=== PATIENT | female | born 1960 | race Hispanic/Latino ===

== ENCOUNTER 2018-08-02 10:41 | Emergency (ER) | payer MEDICAID ==
[2018-08-02 10:58] VITALS: RESP 18; O2SAT 99
--- NOTE | 2018-08-02 11:03 | C.PDOC ---
History Of Present Illness 58 yr old female w/ hx of HTN, HLD, DM2 p/w back pain. Pt notes back pain and abdominal pain x5d, started upon awakening. 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 No trauma or falls. No headache, chest pain or shortness of breath. No constipation or diarrhea but pt notes lightly loose stools over the past 2 days. No recent abx. Last BM was earlier today, normal. No dark or bloody stool. No dysuria, urgency or frequency. No nausea or vomiting. No CP or SOB. No fever, chills or night sweats. No other complaints. Time Seen by Provider: 08/02/18 10:57 Chief Complaint (Nursing): Back Pain History Per: Patient Past Medical History Family History: States: Unknown Family Hx Review Of Systems Constitutional: Negative for: Fever Eyes: Negative for: Pain ENT: Negative for: Ear Pain Cardiovascular: Negative for: Chest Pain Respiratory: Negative for: Cough Gastrointestinal: Positive for: Abdominal Pain. Negative for: Nausea, Vomiting, Constipation Genitourinary: Negative for: Dysuria Musculoskeletal: Positive for: Back Pain. Negative for: Neck Pain Skin: Negative for: Rash Neurological: Negative for: Weakness, Numbness Physical Exam - Physical Exam Appears: Well, Non-toxic, No Acute Distress Skin: Normal Color, Warm, Dry Head: Atraumatic, Normacephalic Eye(s): bilateral: Normal Inspection, PERRL, EOMI Nose: Normal Tongue: Normal Appearing Lips: Normal Appearing Throat: Normal Neck: Normal Cardiovascular: Rhythm Regular Respiratory: Normal Breath Sounds Gastrointestinal/Abdominal: Normal Exam Back: Normal Inspection, CVA Tenderness (L sided), No Vertebral Tenderness, No Decreased ROM, No Muscle Spasm, Paraspinal Tenderness, No Straight Leg Raising Extremity: Normal ROM Neurological/Psych: Oriented x3, Normal Speech, Normal Cognition, Cerebellar Signs Gait: Steady Extremity: Right: No Drift, Left: No Drift, Upper: No Drift, Lower: No Drift ED Course And Treatment - Laboratory Results Result Diagrams: 08/02/18 12:22 08/02/18 12:22 - CT Scan/US CT ABD/PELVIS Other Rad Studies (CT/US): Read By Radiologist CT/US Interpretation: FINDINGS: LOWER THORAX: No visible consolidation, pleural effusion, or pneumothorax. LIVER: Hepatomegaly. GALLBLADDER AND BILE DUCTS: Unremarkable. PANCREAS: Unremarkable. SPLEEN: Unremarkable. ADRENALS: Indeterminate bilateral adrenal gland nodules measure approximately 11 x 9 mm on the right and 15 x 16 mm on the left. KIDNEYS AND URETERS: The kidneys enhance symmetrically. No hydronephrosis or obstructing calculus identified. VASCULATURE: Atherosclerotic calcifications. No aortic aneurysm. BOWEL: Stomach is nondistended. Lack of oral contrast limits evaluation for bowel pathology. Bowel loops appear within normal limits of caliber without evidence of obstruction. APPENDIX: The appendix appears within normal limits of caliber. No secondary signs of acute appendicitis. PERITONEUM: No significant free fluid. No definite free air. LYMPH NODES: No bulky adenopathy identified. BLADDER: Unremarkable. REPRODUCTIVE: Unremarkable. BONES: Degenerative changes. OTHER FINDINGS: Small fat containing umbilical hernia. IMPRESSION: Indeterminate bilateral adrenal gland nodules measure approximately 11 x 9 mm on the right and 15 x 16 mm on the left. Dedicated outpatient cross-sectional imaging may be considered for further characterization. Hepatomegaly. Medical Decision Making Medical Decision Makin yr old female p/w L sided flank pain and abdominal pain LUQ, worse with movement. likely MSK but Given hx of HTN, DM will seek imaging. No recent abx. No cauda equina. Pending imaging and labs. 1412 pain improved Labs unremarkable. No uti Negative CT for AAA or kidney stone. likely MSK strain Pt informed of b/l adrenal nodules and need to follow up w/ PMD for further imaging. Pt notes understanding. Clear for d/c home Disposition - Disposition Referrals: [facility] [Outside] Disposition: HOME/ ROUTINE Disposition Time: 14:00 Condition: GOOD Prescriptions: RX: Cyclobenzaprine [Flexeril] 5 mg PO BID PRN 5 Days #10 tab PRN Reason: Pain, Moderate (4-7) Instructions: Muscle Strain (DC), Lumbar Muscle Strain (DC) Forms: [facility] (Yoruba), Work Excuse - Clinical Impression Clinical Impression: Low back pain, Low back strain
[2018-08-02 12:07] LABS: SQUAMOUS EPITHIAL 1 /hpf (0-5); URINE BACTERIA RARE (<OCC); URINE BILIRUBIN NEGATIVE (NEGATIVE); URINE BLOOD NEGATIVE (NEGATIVE); URINE CLARITY Clear (Clear); URINE COLOR Yellow (YELLOW); URINE GLUCOSE (UA) NORMAL (Normal); URINE LEUKOCYTE ESTERASE NEG Leu/uL (Negative); URINE PROTEIN NEGATIVE (NEGATIVE); URINE UROBILINOGEN NORMAL mg/dL (0.2-1.0)
[2018-08-02 12:30] LABS: BASO # 0.1 K/uL (0.0-0.2); BASO % 0.8 % (0.0-2.0); EOS # 0.1 K/uL (0.0-0.7); EOS % 1.6 % (0.0-4.0); HEMOGLOBIN 11.9 g/dL (11.0-16.0); LYMPH # 3.5 K/uL (1.0-4.3); LYMPH % 40.4 % (20.0-40.0); MEAN CELL VOLUME 82.2 fL (81.0-99.0); MEAN CORPUSCULAR HEMOGLOBIN 27.6 pg (27.0-31.0); MEAN CORPUSCULAR HGB CONC 33.5 g/dL (33.0-37.0); MEAN PLATELET VOLUME 8.6 fL (7.2-11.7); MONO # 0.5 K/uL (0.0-0.8); MONO % 6.3 % (0.0-10.0); NEUT # 4.4 K/uL (1.8-7.0); NEUT % 50.9 % (50.0-75.0); RBC 4.3 Mil/uL (3.80-5.20); RED CELL DISTRIBUTION WIDTH 14.7 % (11.5-14.5); WHITE BLOOD COUNT 8.6 K/uL (4.8-10.8)
[2018-08-02 12:36] LABS: BLOOD UREA NITROGEN 18 mg/dL (7-17); CALCIUM 9.3 mg/dl (8.6-10.4); GFR NON-AFRICAN AMERICAN > 60; LIPASE 33 U/L (23-300)
[2018-08-02 12:38] LABS: ALB/GLOB RATIO 1.4 (1.0-2.1); ALBUMIN 4.2 g/dL (3.5-5.0); ALT/SGPT 21 U/L (9-52); AST/SGOT 22 U/L (14-36)
[2018-08-02] MEDS ORDERED: Iodixanol 320 MG/ML 100 ML BOTTLE IV ONE (13:07)
--- NOTE | 2018-08-02 14:03 | CT ---
Date of service: 08/02/2018 PROCEDURE: CT Abdomen and Pelvis with contrast HISTORY: L flank pain, LLQ pain COMPARISON: None available. TECHNIQUE: Contrast dose: 100 cc Visipaque 320 Radiation dose: Total exam DLP = 1112.99 mGy-cm. This CT exam was performed using one or more of the following dose reduction techniques: Automated exposure control, adjustment of the mA and/or kV according to patient size, and/or use of iterative reconstruction technique. FINDINGS: LOWER THORAX: No visible consolidation, pleural effusion, or pneumothorax. LIVER: Hepatomegaly. GALLBLADDER AND BILE DUCTS: Unremarkable. PANCREAS: Unremarkable. SPLEEN: Unremarkable. ADRENALS: Indeterminate bilateral adrenal gland nodules measure approximately 11 x 9 mm on the right and 15 x 16 mm on the left. KIDNEYS AND URETERS: The kidneys enhance symmetrically. No hydronephrosis or obstructing calculus identified. VASCULATURE: Atherosclerotic calcifications. No aortic aneurysm. BOWEL: Stomach is nondistended. Lack of oral contrast limits evaluation for bowel pathology. Bowel loops appear within normal limits of caliber without evidence of obstruction. APPENDIX: The appendix appears within normal limits of caliber. No secondary signs of acute appendicitis. PERITONEUM: No significant free fluid. No definite free air. LYMPH NODES: No bulky adenopathy identified. BLADDER: Unremarkable. REPRODUCTIVE: Unremarkable. BONES: Degenerative changes. OTHER FINDINGS: Small fat containing umbilical hernia. IMPRESSION: Indeterminate bilateral adrenal gland nodules measure approximately 11 x 9 mm on the right and 15 x 16 mm on the left. Dedicated outpatient cross-sectional imaging may be considered for further characterization. Hepatomegaly.
[2018-08-02 14:22] VITALS: BP 132/79; PULSE 60; TEMP 98
== END 2018-08-02 14:31 | disposition home or self-care (01) ==
LOC: C.ER 10:41
DX: S39.012A Strain of muscle, fascia and tendon of lower back, initial encounter (principal); X58.XXXA Exposure to other specified factors, initial encounter
CPT/HCPCS: 74177; 80053; 81001; 83690; 85025; 99284; Q9967